=== PATIENT | female | born 1935 | race Caucasian/White ===

== ENCOUNTER → 2016-09-27 | Outpatient (CLI) | payer OTHER ==
[~2016-09-27] MED LIST: ACET-1600 PO; ACID1TAB7 PO; ALBU8.5H5 INH; AMIT25TA PO; ASPI-496 PO; ASPI-621 PO; ATOR40TA PO; ATOR80TA PO; AZIT500T77 PO; CEFT1VIA6 IV; CHOL20002 PO; CILO50TA9 PO; CIPR500T87 PO; CLON1TAB23 PO; CLOP75TA PO; CYAN10005 PO; DONE10TA14 PO; FISH OIL; FLUO20CA19 PO; FLUO40CA9 PO; FLUT1DIS3 INH; FURO-93 PO; GABA600T2 PO; HYDR-3138 PO; MELO-184 PO; METO25TA35 PO; METO25TA91 PO; METR500T PO; MORP100T27 PO; NITR0.4T8 SL; OMEP-110 PO; PANT40TA3 PO; PRED20TA PO; SULF1TAB3 PO; TICA90TA PO; TIOT18CA INH; TRAM50TA2 PO; TRIA1CAP13 PO
== END | disposition home or self-care (01) ==
LOC: CVU 12:55
PROVIDERS: ATTEND Surgery
DX: I72.4 Aneurysm of artery of lower extremity (principal); R60.0 Localized edema; M25.562 Pain in left knee; J44.9 Chronic obstructive pulmonary disease, unspecified; N18.3 Chronic kidney disease, stage 3 (moderate); F03.90 Unspecified dementia, unspecified severity, without behavioral disturbance, psychotic disturbance, mood disturbance, and anxiety; Z87.891 Personal history of nicotine dependence
CPT/HCPCS: 93922; 93925; 93970

== ENCOUNTER → 2016-10-07 | Outpatient (CLI) | payer OTHER ==
[~2016-10-07] MED LIST changes: +CILO50TA PO; +CLON-365 PO; +OXYGEN NAS; +TRIAMTERENE PO
== END ==
LOC: STAR 09:21
PROVIDERS: ATTEND Surgery
DX: Z02.9 Encounter for administrative examinations, unspecified (principal)

== ENCOUNTER 2016-10-13 09:21 | Day surgery (SDC) | payer OTHER ==
[~2016-10-13] VITALS: Ht 162.6 cm; Wt 72.3 kg
[2016-10-13 10:28] VITALS: BP 123/69
[2016-10-13 10:51] LABS: HEMATOCRIT 32.9 % (34.6-47.8); HEMOGLOBIN 10.3 g/dL (11.7-16.4); WHITE BLOOD COUNT 10.1 x10^3/uL (3.4-10)
[2016-10-13 11:04] LABS: ASPARTATE AMINO TRANSFERASE 18 U/L (15-37); BLOOD UREA NITROGEN 24 mg/dL (7-18)
[2016-10-13] MEDS ORDERED: LIDOCAINE 2%, 20ML ONE (11:30)
[2016-10-13] MEDS ORDERED: MIDAZOLAM 1 MG/ML, 5ML ONE (11:30)
[2016-10-13] MEDS ORDERED: FENTANYL PF 100 MCG/2ML ONE (11:30)
[2016-10-13] MEDS ORDERED: NALOXONE 1 MG/ML, 2ML ONE (11:30)
[2016-10-13] MEDS ORDERED: VISIPAQUE 270 MG/ML, 150ML BOTTLE ONE (16:00)
== END 2016-10-13 18:00 | disposition home or self-care (01) ==
LOC: OUT 09:21
PROVIDERS: ATTEND Surgery
DX: I77.1 Stricture of artery (principal); I99.8 Other disorder of circulatory system; E66.9 Obesity, unspecified; Z87.891 Personal history of nicotine dependence; Z79.82 Long term (current) use of aspirin; Z86.73 Personal history of transient ischemic attack (TIA), and cerebral infarction without residual deficits; Z90.710 Acquired absence of both cervix and uterus; Z98.890 Other specified postprocedural states; Z98.51 Tubal ligation status
CPT/HCPCS: 36200; 36415; 75630; 80053; 85025; 85610; 85730; 93005; C1769; C1894; J2250; J3010; J3490; Q9966; J2310

== ENCOUNTER 2016-11-03 13:45 | Inpatient (IN) | payer OTHER ==
[2016-10-29 10:50] VITALS: BP 145/71
[~2016-11-03] VITALS: Ht 162.6 cm; Wt 69.5 kg
[~2016-11-03 13:45] MED LIST changes: +AZIT500T5 PO; -AZIT500T77 PO; -HYDR-3138 PO; +HYDR-3237 PO; -MELO-184 PO; +MELO15TA24 PO; +NITR0.4T28 SL; -NITR0.4T8 SL; +SULF-169 PO; -SULF1TAB3 PO; +antibiotic PO
[2016-11-03] MEDS ORDERED: LACTATED RINGERS 1,000 ML IV SCH (14:25)
[2016-11-03] MEDS ORDERED: METO25TA35 PO (14:27)
[2016-11-03] MEDS ORDERED: fishoil PO (14:29)
[2016-11-03] MEDS ORDERED: CLOP75TA52 PO (14:30)
[2016-11-03] MEDS ORDERED: FENTANYL PF 100 MCG/2ML ONE ×2 (14:54)
[2016-11-03] MEDS ORDERED: CEFAZOLIN 1,000 MG ONE (15:11)
[2016-11-03] MEDS ORDERED: ONDANSETRON 2MG/ML, 2ML ONE (15:11)
[2016-11-03] MEDS ORDERED: PROPOFOL 10 MG/ML, 20ML ONE (15:11)
[2016-11-03] MEDS ORDERED: MIDAZOLAM 1 MG/ML, 2ML IV PRN (16:00)
[2016-11-03] MEDS ORDERED: ACETAMINOPHEN 325 MG TABLET PO PRN (16:00)
[2016-11-03] MEDS ORDERED: EPHEDRINE 50 MG/ML, 1ML IVPush PRN (16:00)
[2016-11-03] MEDS ORDERED: FENTANYL PF 100 MCG/2ML IV PRN (16:00)
[2016-11-03] MEDS ORDERED: ONDANSETRON 2MG/ML, 2ML IVPush PRN (16:00)
[2016-11-03] MEDS ORDERED: METOPROLOL 1 MG/ML, 5ML IV PRN (16:00)
[2016-11-03] MEDS ORDERED: hydrALAzine 20 MG/ML, 1ML IV PRN (16:00)
[2016-11-03] MEDS ORDERED: OXYcodone 5 MG/5 ML ORAL.SOL UDC PO PRN (16:00)
[2016-11-03] MEDS ORDERED: OXYcodone 5 MG/5 ML ORAL.SOL UDC ONE (16:29)
[2016-11-03] MEDS ORDERED: HYDROmorphone 1 MG/ML, 1ML ONE (16:38)
[2016-11-03] MEDS: HYDROmorphone 1 MG/ML, 1ML IV PRN ×3 (16:39→16:47)
[2016-11-03] MEDS ORDERED: METOPROLOL 1 MG/ML, 5ML ONE (16:41)
[2016-11-03] MEDS ORDERED: ONDANSETRON 2MG/ML, 2ML IV PRN (18:30)
[2016-11-03] MEDS ORDERED: OXYcodone/APAP 5/325MG TABLET PO PRN (18:30)
[2016-11-03] MEDS ORDERED: HYDROmorphone 1 MG/ML, 1ML IV PRN (18:30)
[2016-11-03 18:52] VITALS: BP 147/59
[2016-11-03] MEDS ORDERED: ALBUTEROL/IPRATROPIUM 2.5MG/0.5MG, 3 ML NPPB PRN (19:00)
[2016-11-03] MEDS: POTASSIUM CHLORIDE 20 MEQ in D5%-0.45% NACL 1,000 ML IV SCH (20:29)
[2016-11-03] MEDS: CEFOTETAN PMX 1GM/50ML 50 ML IVPB SCH (23:28)
[2016-11-04] MEDS: morphine SULFATE 10 MG/ML, 1ML IV PRN (02:37)
[2016-11-04 02:39] VITALS: BP 149/64
[2016-11-04] MEDS: POTASSIUM CHLORIDE 20 MEQ in D5%-0.45% NACL 1,000 ML IV SCH ×2 (06:28→17:10)
[2016-11-04 08:33] LABS: HEMATOCRIT 28.6 % (34.6-47.8); HEMOGLOBIN 9.2 g/dL (11.7-16.4); WHITE BLOOD COUNT 6.6 x10^3/uL (3.4-10)
[2016-11-04 08:44] LABS: BLOOD UREA NITROGEN 15 mg/dL (7-18)
[2016-11-04] MEDS ORDERED: ENOXAPARIN 40 MG/0.4 ML SQ SCH (09:00)
[2016-11-04] MEDS ORDERED: ENOXAPARIN 30 MG/0.3 ML SQ SCH (09:00)
[2016-11-04] MEDS: HYDROcodone/APAP 5/325 TABLET PO PRN ×2 (10:57→15:30)
[2016-11-04] MEDS: CEFOTETAN PMX 1GM/50ML 50 ML IVPB SCH (11:03)
[2016-11-04 14:11] VITALS: BP 156/70
[2016-11-04 19:35] VITALS: BP 150/53
[2016-11-04] MEDS: AMITRIPTYLINE 25 MG TABLET PO SCH (20:50)
[2016-11-04] MEDS: ATORVASTATIN 40 MG TABLET PO SCH (20:51)
[2016-11-04] MEDS: FLUOXETINE 20 MG CAPSULE PO SCH (20:52)
[2016-11-04] MEDS: GABAPENTIN 300 MG CAPSULE PO SCH (20:52)
[2016-11-04] MEDS: METOPROLOL TARTRATE 25 MG TABLET PO SCH (20:52)
[2016-11-05 00:51] VITALS: BP 154/66
[2016-11-05] MEDS: HYDROcodone/APAP 5/325 TABLET PO PRN ×2 (02:08→08:51)
[2016-11-05] MEDS: POTASSIUM CHLORIDE 20 MEQ in D5%-0.45% NACL 1,000 ML IV SCH ×2 (05:08→15:12)
[2016-11-05 05:29] LABS: HEMATOCRIT 28.5 % (34.6-47.8); HEMOGLOBIN 9.2 g/dL (11.7-16.4); WHITE BLOOD COUNT 10.7 x10^3/uL (3.4-10)
[2016-11-05 05:30] LABS: BLOOD UREA NITROGEN 11 mg/dL (7-18)
[2016-11-05 07:01] VITALS: BP 117/49
[2016-11-05] MEDS: FLUOXETINE 20 MG CAPSULE PO SCH ×2 (08:51→20:50)
[2016-11-05] MEDS: METOPROLOL TARTRATE 25 MG TABLET PO SCH ×2 (08:51→20:50)
[2016-11-05] MEDS: GABAPENTIN 300 MG CAPSULE PO SCH ×3 (08:51→20:50)
[2016-11-05] MEDS: ENOXAPARIN 40 MG/0.4 ML SQ SCH (08:51)
[2016-11-05] MEDS: BISACODYL 10 MG SUPP PR PRN (10:57)
[2016-11-05] MEDS: morphine SULFATE 10 MG/ML, 1ML IV PRN (15:12)
[2016-11-05 17:10] VITALS: BP 143/51
[2016-11-05 19:18] VITALS: BP 148/63
[2016-11-05] MEDS: ATORVASTATIN 40 MG TABLET PO SCH (20:49)
[2016-11-05] MEDS: AMITRIPTYLINE 25 MG TABLET PO SCH (20:49)
[2016-11-06 01:30] VITALS: BP 137/46
[2016-11-06 05:34] LABS: HEMATOCRIT 30.2 % (34.6-47.8); HEMOGLOBIN 9.8 g/dL (11.7-16.4); WHITE BLOOD COUNT 7.4 x10^3/uL (3.4-10)
[2016-11-06 05:36] LABS: ASPARTATE AMINO TRANSFERASE 85 U/L (15-37); BLOOD UREA NITROGEN 10 mg/dL (7-18)
[2016-11-06] MEDS: SPIRIVA 18 MCG INH SCH ×2 (09:00→16:45)
[2016-11-06 09:41] VITALS: BP 138/53
[2016-11-06] MEDS: POTASSIUM CHLORIDE 20 MEQ in D5%-0.45% NACL 1,000 ML IV SCH (09:42)
[2016-11-06] MEDS: BISACODYL 10 MG SUPP PR PRN (09:42)
[2016-11-06] MEDS: METOPROLOL TARTRATE 25 MG TABLET PO SCH ×2 (09:43→22:23)
[2016-11-06] MEDS: DONEPEZIL 10 MG TABLET PO SCH (09:43)
[2016-11-06] MEDS: FLUOXETINE 20 MG CAPSULE PO SCH ×2 (09:43→21:54)
[2016-11-06] MEDS: GABAPENTIN 300 MG CAPSULE PO SCH ×3 (09:43→21:54)
[2016-11-06] MEDS: ENOXAPARIN 40 MG/0.4 ML SQ SCH (09:43)
[2016-11-06] MEDS: HYDROcodone/APAP 5/325 TABLET PO PRN ×2 (11:04→17:22)
[2016-11-06 13:09] VITALS: BP 105/41
[2016-11-06] MEDS: MAGNESIUM HYDROXIDE 8%, 30ML UDC PO PRN (16:45)
[2016-11-06 21:10] VITALS: BP 135/57
[2016-11-06] MEDS: ATORVASTATIN 40 MG TABLET PO SCH (21:53)
[2016-11-06] MEDS: AMITRIPTYLINE 25 MG TABLET PO SCH (21:53)
[2016-11-07 01:39] VITALS: BP 135/63
[2016-11-07 05:30] LABS: HEMATOCRIT 27.9 % (34.6-47.8); WHITE BLOOD COUNT 8.2 x10^3/uL (3.4-10)
[2016-11-07 05:45] LABS: BLOOD UREA NITROGEN 13 mg/dL (7-18)
[2016-11-07] MEDS: ASPIRIN 81 MG TABLET EC PO SCH (07:36)
[2016-11-07] MEDS: CLOPIDOGREL 75 MG TABLET PO SCH (07:37)
[2016-11-07] MEDS: DONEPEZIL 10 MG TABLET PO SCH (07:37)
[2016-11-07] MEDS: FLUOXETINE 20 MG CAPSULE PO SCH ×2 (07:37→20:45)
[2016-11-07] MEDS: GABAPENTIN 300 MG CAPSULE PO SCH ×3 (07:37→20:45)
[2016-11-07] MEDS: METOPROLOL TARTRATE 25 MG TABLET PO SCH ×2 (07:38→20:45)
[2016-11-07 07:39] VITALS: BP 109/50
[2016-11-07] MEDS: SPIRIVA 18 MCG INH SCH (07:39)
[2016-11-07] MEDS: ENOXAPARIN 40 MG/0.4 ML SQ SCH (07:44)
[2016-11-07] MEDS: HYDROcodone/APAP 5/325 TABLET PO PRN ×2 (10:18→17:00)
[2016-11-07 14:08] VITALS: BP 126/56
[2016-11-07 20:42] VITALS: BP 119/46
[2016-11-07] MEDS: ATORVASTATIN 40 MG TABLET PO SCH (20:45)
[2016-11-07] MEDS: AMITRIPTYLINE 25 MG TABLET PO SCH (20:45)
[2016-11-08] MEDS: HYDROcodone/APAP 5/325 TABLET PO PRN ×5 (00:56→23:19)
[2016-11-08] MEDS: POTASSIUM CHLORIDE 20 MEQ in D5%-0.45% NACL 1,000 ML IV SCH (01:18)
[2016-11-08 01:22] VITALS: BP 103/44
[2016-11-08] MEDS: ASPIRIN 81 MG TABLET EC PO SCH (06:00)
[2016-11-08 08:29] VITALS: BP 106/46
[2016-11-08] MEDS: FLUOXETINE 20 MG CAPSULE PO SCH ×2 (08:44→22:38)
[2016-11-08] MEDS: GABAPENTIN 300 MG CAPSULE PO SCH ×3 (08:44→22:38)
[2016-11-08] MEDS: CLOPIDOGREL 75 MG TABLET PO SCH (08:44)
[2016-11-08] MEDS: METOPROLOL TARTRATE 25 MG TABLET PO SCH ×2 (08:44→22:38)
[2016-11-08] MEDS: DONEPEZIL 10 MG TABLET PO SCH (08:45)
[2016-11-08] MEDS: ENOXAPARIN 40 MG/0.4 ML SQ SCH (08:45)
[2016-11-08] MEDS: SPIRIVA 18 MCG INH SCH (08:50)
[2016-11-08 12:05] VITALS: BP 108/66
[2016-11-08 20:30] VITALS: BP 111/46
[2016-11-08] MEDS: AMITRIPTYLINE 25 MG TABLET PO SCH (22:38)
[2016-11-08] MEDS: ATORVASTATIN 40 MG TABLET PO SCH (22:38)
[2016-11-09] MEDS: POTASSIUM CHLORIDE 20 MEQ in D5%-0.45% NACL 1,000 ML IV SCH (00:20)
[2016-11-09 02:53] VITALS: BP 129/58
[2016-11-09] MEDS: MAGNESIUM HYDROXIDE 8%, 30ML UDC PO PRN (04:00)
[2016-11-09] MEDS: ASPIRIN 81 MG TABLET EC PO SCH (06:14)
[2016-11-09 08:49] VITALS: BP 106/45
[2016-11-09] MEDS: FLUOXETINE 20 MG CAPSULE PO SCH ×2 (08:56→20:43)
[2016-11-09] MEDS: HYDROcodone/APAP 5/325 TABLET PO PRN ×3 (08:57→17:45)
[2016-11-09] MEDS: CLOPIDOGREL 75 MG TABLET PO SCH (08:58)
[2016-11-09] MEDS: GABAPENTIN 300 MG CAPSULE PO SCH ×3 (08:59→20:43)
[2016-11-09] MEDS: DONEPEZIL 10 MG TABLET PO SCH (08:59)
[2016-11-09] MEDS: SPIRIVA 18 MCG INH SCH (09:03)
[2016-11-09] MEDS: METOPROLOL TARTRATE 25 MG TABLET PO SCH ×2 (09:03→20:44)
[2016-11-09] MEDS: ENOXAPARIN 40 MG/0.4 ML SQ SCH (11:18)
[2016-11-09] MEDS: BISACODYL 10 MG SUPP PR PRN (11:41)
[2016-11-09 15:59] VITALS: BP 154/58
[2016-11-09 20:25] VITALS: BP 124/51
[2016-11-09] MEDS: AMITRIPTYLINE 25 MG TABLET PO SCH (20:43)
[2016-11-09] MEDS: ATORVASTATIN 40 MG TABLET PO SCH (20:43)
[2016-11-10 01:24] VITALS: BP 124/74
[2016-11-10] MEDS: ASPIRIN 81 MG TABLET EC PO SCH (06:41)
[2016-11-10] MEDS: SPIRIVA 18 MCG INH SCH (09:00)
[2016-11-10 09:50] VITALS: BP 110/52
[2016-11-10] MEDS: ENOXAPARIN 40 MG/0.4 ML SQ SCH (09:59)
[2016-11-10] MEDS: METOPROLOL TARTRATE 25 MG TABLET PO SCH (09:59)
[2016-11-10] MEDS: HYDROcodone/APAP 5/325 TABLET PO PRN ×2 (09:59→17:17)
[2016-11-10] MEDS: CLOPIDOGREL 75 MG TABLET PO SCH (09:59)
[2016-11-10] MEDS: DONEPEZIL 10 MG TABLET PO SCH (09:59)
[2016-11-10] MEDS: GABAPENTIN 300 MG CAPSULE PO SCH ×2 (09:59→17:17)
[2016-11-10] MEDS: FLUOXETINE 20 MG CAPSULE PO SCH (09:59)
[2016-11-10 14:01] VITALS: BP 114/58
== END 2016-11-10 22:24 | DRG 239 ==
LOC: ORIP 13:45 → 4NOR 17:53
PROVIDERS: ADMIT Surgery; ATTEND Surgery
PROC: 0T9B70Z Drainage of Bladder with Drainage Device, Via Natural or Artificial Opening (ICD-10-PCS; 2016-11-03)
PROC: 0Y6J0Z1 Detachment at Left Lower Leg, High, Open Approach (ICD-10-PCS; principal; 2016-11-03 16:00)
DX: I70.222 Atherosclerosis of native arteries of extremities with rest pain, left leg (principal); E43 Unspecified severe protein-calorie malnutrition; G93.41 Metabolic encephalopathy; J96.10 Chronic respiratory failure, unspecified whether with hypoxia or hypercapnia; I50.32 Chronic diastolic (congestive) heart failure; I13.0 Hypertensive heart and chronic kidney disease with heart failure and stage 1 through stage 4 chronic kidney disease, or unspecified chronic kidney disease; F03.90 Unspecified dementia, unspecified severity, without behavioral disturbance, psychotic disturbance, mood disturbance, and anxiety; Z99.81 Dependence on supplemental oxygen; F33.9 Major depressive disorder, recurrent, unspecified; I99.8 Other disorder of circulatory system; I25.10 Atherosclerotic heart disease of native coronary artery without angina pectoris; E78.5 Hyperlipidemia, unspecified; F17.210 Nicotine dependence, cigarettes, uncomplicated; N18.3 Chronic kidney disease, stage 3 (moderate); D64.9 Anemia, unspecified; J44.9 Chronic obstructive pulmonary disease, unspecified; D75.82 Heparin induced thrombocytopenia (HIT); F41.9 Anxiety disorder, unspecified; I25.2 Old myocardial infarction; Z86.73 Personal history of transient ischemic attack (TIA), and cerebral infarction without residual deficits; Z86.718 Personal history of other venous thrombosis and embolism; Z95.5 Presence of coronary angioplasty implant and graft; Z88.5 Allergy status to narcotic agent; Z88.7 Allergy status to serum and vaccine; Z68.26 Body mass index [BMI] 26.0-26.9, adult; Z99.3 Dependence on wheelchair
CPT/HCPCS: 36415; 80048; 80053; 81003; 82040; 85025; 88307; J0690; J1170; J1650; J2405; J2704; J3010; J3480; J2270; J7120; S0074